=== PATIENT | female | born 1975 | race Caucasian/White ===

== ENCOUNTER → 2018-04-02 09:08 | Outpatient (CLI) | payer OTHER, SELFPAY ==
--- NOTE | 2018-04-02 09:12 | US_ITS ---
US transvaginal & transabdominal scanning Ordering Physician: Dexter Snowden MD Patient Age: 42 years: Female HISTORY: ITS.REASON: PELVIC PAIN Patient tender with palpation at the left lower quadrant TECHNIQUE:. Initially Transvaginal pelvic ultrasound performed. However the ovaries are actually better seen with transabdominal images. COMPARISON :March 15, 2016 ultrasound pelvis FINDINGS Uterus normal size 8.1 cm length x4.4 similar AP x 6.1 cm wide. The no mass lesions. Previous scar. I believe evident A few tinysmallNabothian cysts noted . Endometrial stripe measures up to 10 mm thickness.. Right ovary measures 2.8 x 2.3 x 2.45 cm.. Right ovary unremarkable WNL. left ovary measures 3.6 x 2.65 cm. . A simple debris-filled cyst is seen at the left ovary. Measures 2.2 x 1.7 cm Satisfactory color Doppler flow to both ovaries. No free fluid at pelvis IMPRESSION: Uterus normal size. Moderate endometrial stripe up to 10 mm AP . Ovaries normal in size bilateral. Left ovary 2.2 cm is 1.7 debris-filled cyst noted. No fluid in cul-de-sac.
--- NOTE | 2018-04-02 09:12 | MM_ITS ---
MM Dig screening mamm BI w/CAD CAD Screening COMPARISON: None, this is baseline INDICATION: There is a history of breast cancer in a patient maternal grandmother. TECHNIQUE: Standard CC and MLO images were obtained. R2 CAD reviewed. FINDINGS: The breasts are composed primarily of fat with minimal scattered fibroglandular densities in each breast. There is more markers on each breast. There are benign-appearing calcifications right breast. There is no suspicious lesion and no suspicious microcalcifications. IMPRESSION: Fatty type breast parenchyma with no suspicious lesion seen BI-RADS Category: 2 Benign Finding(s) RECOMMENDED FOLLOW-UP: 1YR - 1 YEAR FOLLOW-UP (A letter has been sent to the patient regarding results of the study.)
== END ==
PROVIDERS: PCP Internal Medicine; Visit Provider Obstetrics & Gynecology
DX: Z12.31 Encounter for screening mammogram for malignant neoplasm of breast (principal); R10.2 Pelvic and perineal pain
CPT/HCPCS: 76830; 77067

== ENCOUNTER → 2018-04-10 10:18 | Outpatient (CLI) | payer OTHER, SELFPAY ==
--- NOTE | 2018-04-10 10:21 | US_ITS ---
US transvaginal HISTORY: Left lower quadrant pain ITS.REASON: LEFT OVARIAN CYST ORDERING PHYSICIAN: Dexter Snowden MD PATIENT AGE: 42 years Comparison: 04/02/2018 FINDINGS: The uterus is 9 x 5 x 5 cm with a combined medial thickness of 9 mm. No adnexal mass or cul-de-sac fluid. Blood flow is present within both ovaries. Study is somewhat limited technically due to patient's body habitus. Previously noted left ovarian cyst is no longer demonstrated IMPRESSION: Negative ultrasound pelvis
== END ==
PROVIDERS: PCP Internal Medicine; Visit Provider Obstetrics & Gynecology
DX: N83.202 Unspecified ovarian cyst, left side (principal)
CPT/HCPCS: 76830

== ENCOUNTER 2019-10-20 11:05 | Emergency (ER) | payer OTHER, SELFPAY ==
[2019-10-20 11:06] VITALS: BP 139/78; PULSE 101; RESP 18; TEMP 36.6; O2SAT 99; BMI 44.2
--- NOTE | 2019-10-20 11:16 | CT_ITS ---
PROCEDURE: CT ABDOMEN PELVIS WO CON CLINICAL INDICATION: abdomen pain Bilateral pelvic pain COMPARISON: ABDPELW/O CT ABD PELVIS W/O CONTRAST from 04/16/2016 TECHNIQUE: Axial images obtained with sagittal and coronal reformats. All CT scans at the facility use one or more dose reduction, viz: automated exposure control, ma/kV adjustment per patient size (including targeted exams where dose is matched to indication, i.e. head), or iterative reconstruction technique. FINDINGS: LOWER THORAX: Atelectatic changes are present in the right middle lobe with some minimal nodularity noted at this region. ABDOMEN & PELVIS: Prior cholecystectomy. The liver, spleen, right adrenal gland and pancreas have an unremarkable appearance. There is mild enlargement of the left adrenal gland maintaining an adrenal form shape measuring -13 Hounsfield units consistent with a an adenoma. No renal or ureteral calculi are evident. There are few scattered small mesenteric lymph nodes. Unremarkable appendix. Colonic diverticulosis without diverticulitis. No pelvic mass or abnormal fluid collection. No intestinal obstruction or free air. No acute bony findings. IMPRESSION: No acute finding of the abdomen or pelvis. Right lower middle lobe atelectatic changes Dictated by: Josesito King MD 10/20/2019 12:23 Electronically signed by Josesito King MD in [place] 10/20/2019 12:23
[2019-10-20 11:36] LABS: Basophils % 0.4 % (0.1-2.0); Eosinophils # 0.1 K/mm3 (0.0-0.4); Eosinophils % 1.3 % (0.1-12.0); Hemoglobin 15.1 g/dL (12.2-16.2); Lymphocytes # 3.2 K/mm3 (0.7-4.5); Lymphocytes % 29.7 % (10-50); Mean Corpuscular HGB Conc 35.2 g/dL (31.8-35.4); Mean Corpuscular Hemoglobin 30.7 pg (27.0-31.2); Mean Corpuscular Volume 87.1 fl (81-99); Mean Platelet Volume 7.6 fl (7.4-10.4); Monocytes # 0.4 K/mm3 (0.1-1.0); Monocytes % 3.2 % (1.7-9.3); Neutrophils # 7.1 K/mm3 (1.8-7.8); Neutrophils % 65.4 % (37.0-80.0); Platelet Count 361 K/mm3 (142-424); Red Blood Count 4.94 M/mm3 (4.20-5.40); Red Cell Distribution Width 13.8 % (11.5-17.5); White Blood Count 10.9 K/mm3 (4.8-10.8)
[2019-10-20 11:40] LABS: Chloride 100 mmol/L (98-107); Potassium 4.3 mmoL/L (3.5-5.1); Sodium 137 mmol/L (136-145)
[2019-10-20 11:42] LABS: Blood Urea Nitrogen 13 mg/dl (7-17); Creatinine Clearance Estimated 122 mL/min (50-200); Estimated Glomerular Filt Rate 136 ml/min (>60); GFR (African American) 165 ML/MIN (>60)
[2019-10-20 11:43] LABS: Alanine Aminotransferase 18 U/L (12-78); Albumin Level 4.4 g/dl (3.5-5.0); Albumin/Globulin Ratio 1.5 (1.1-1.8); Alkaline Phosphatase 70 U/L (38-126); Anion Gap 13.3 mEq/L (5-15); Aspartate Amino Transferase 22 U/L (14-36); Bilirubin,Total 0.5 mg/dl (0.2-1.3); Carbon Dioxide 28 mmol/L (22.0-30.0); Globulin 2.9 g/dL (1.3-3.2); Total Protein,Serum 7.3 g/dl (6.3-8.2)
[2019-10-20 11:44] LABS: Calcium 9.7 mg/dl (8.4-10.2); Glucose 95 mg/dl (74-100)
--- NOTE | 2019-10-20 11:58 | PC.NURSE ---
Pt to CT
[2019-10-20 12:06] VITALS: BP 140/89; PULSE 91; RESP 19; O2SAT 99
--- NOTE | 2019-10-20 13:12 | US_ITS ---
PROCEDURE: US TRANSVAGINAL CLINICAL INDICATION: pelvic pain COMPARISON: TRANVAG US transvaginal from 04/10/2018 FINDINGS: UTERUS: 10cm x 5cmx 4cm with a combined endometrial thickness of 13.8mm LEFT OVARY: [id number] with a volume of 10.3ml. RIGHT OVARY: [id number] with a volume of 8ml. There are nabothian cyst present. The ovaries are not well delineated. No dominant cyst evident. No cul-de-sac fluid apparent IMPRESSION: Bulky uterus with thickened endometrium Dictated by: Josesito King MD 10/20/2019 15:34 Electronically signed by Josesito King MD in [place] 10/20/2019 15:34
--- NOTE | 2019-10-20 14:07 | [facility].EDABDPAI ---
ED Disposition Clinical Impression: PCOS (polycystic ovarian syndrome) Disposition: Home, Self-Care Condition on Discharge: Good Instructions: DI for Acute Abdomen Additional Instructions: Please follow-up with Dr. Damico. Prescriptions: Dicyclomine HCl [Bentyl 10mg capsule] 20 mg PO QID PRN 10 Days #40 cap PRN Reason: Abdominal Distention Transmission Status: Pending to [id number] Nabumetone 750 mg PO BID 10 Days #20 tab Transmission Status: Pending to [id number] Referrals: Andrea Delgado [Primary Care Provider] - - Critical Care Critical Care Time: No Attestation: On 10/20/19, the high probability of a clinically significant, sudden or life threatening deterioration of the following system(s) required my full and direct attention, intervention and personal management. The time I documented below is in addition to time spent performing reported procedures but includes the following listed in this critical care notation. Medical Decision Making - Medical Records Medical records reviewed: Yes: I reviewed the patient's medical records. - [place] Inquiry Pt receiving controlled substance: No Vital Signs: 10/20/19 11:06 10/20/19 12:06 Temperature 97.8 F Temperature Source Oral Pulse Rate [Radial] 101 H 91 H Respiratory Rate 18 19 Blood Pressure [Right Arm] 139/78 140/89 Blood Pressure Mean [Right Arm] 98 106 Blood Pressure Source [Right Arm] Automatic Cuff Automatic Cuff Blood Pressure Position [Right Arm] Sitting Sitting 02 Sat by Pulse Oximetry 99 99 Oxygen Delivery Method Room Air Room Air - Lab Data Lab results reviewed: Yes: I reviewed the patient's lab results. Lab Results 10/20/19 11:25: WBC 10.9 H, RBC 4.94, Hgb 15.1, Hct 43.0, MCV 87.1, MCH 30.7, MCHC 35.2, RDW 13.8, Plt Count 361, MPV 7.6, Neut % (Auto) 65.4, Lymph % (Auto) 29.7, [place] % (Auto) 3.2, Eos % (Auto) 1.3, Baso % (Auto) 0.4, Neut # (Auto) 7.1, Lymph # (Auto) 3.2, [place] # (Auto) 0.4, Eos # (Auto) 0.1, Baso # (Auto) 0.0 10/20/19 11:25: Sodium 137, Potassium 4.3, Chloride 100, Carbon Dioxide 28, Anion Gap 13.3, BUN 13, Creatinine 0.50 L, Estimated Creat Clear 122, Estimated GFR 136, Est GFR ( Amer) 165, Glucose 95, Calcium 9.7, Total Bilirubin 0.5, AST 22, ALT 18, Alkaline Phosphatase 70, Total Protein 7.3, Albumin 4.4, Globulin 2.9, Albumin/Globulin Ratio 1.5 Result diagrams: 10/20/19 11:25 10/20/19 11:25 Orders (Tests/Meds): ED MEDICATIONS Discontinued Medications Generic Name Dose Route Start Last Admin Trade Name Freq PRN Reason Stop Dose Admin Hydromorphone HCl 1 mg 10/20/19 12:20 10/20/19 12:21 Dilaudid 2mg/Ml Syringe IV 10/20/19 12:21 1 mg ONCE ONE Administration Sodium Chloride 1,000 mls @ 999 mls/hr 10/20/19 11:30 10/20/19 11:28 Sod Chlor 0.9% 1000ml Bag IV 10/20/19 12:30 999 mls/hr .Q1H1M SHAVON Administration Morphine Sulfate 4 mg 10/20/19 11:27 10/20/19 11:27 Morphine 4mg/Ml Syringe IV 10/20/19 11:28 4 mg ONCE ONE Administration Ondansetron HCl 4 mg 10/20/19 11:16 10/20/19 11:26 Zofran 4mg/2ml Vial IV 10/20/19 11:17 4 mg ONCE ONE Administration ORDERS Category Date Time Status US transvaginal Stat Exams 10/20/19 13:12 Ordered - CT Data CT Scan: Abdomen, Pelvis Time Received: 14:[address] Reviewed: Yes: I have viewed the radiologist's interpretation Preliminary Findings: Normal/NAD - US Data US Images: Abdomen ED US Reviewed: Yes: I have viewed radiologist's interpretation Findings Narrative: Polycystic ovaries Abdominal Pain HPI - General Chief Complaint: Abdominal Pain Stated Complaint: lower stomach pain Time Seen by Provider: 10/20/19 14:08 Mode of Arrival: Ambulatory Limitations: No Limitations Description of Symptoms (Recalled from ER Triage Doc. by RN): complaint of lower abdomen pain that started last night. States she has previous history of ovarian cysts. - History of Present Illness HPI narrat
[2019-10-20 14:55] VITALS: BP 138/70; PULSE 70; RESP 16; TEMP 36.7; O2SAT 98
== END 2019-10-20 14:56 | disposition home or self-care (01) ==
PROVIDERS: Emergency Provider Family Medicine; PCP Internal Medicine
DX: E28.2 Polycystic ovarian syndrome (principal); R10.30 Lower abdominal pain, unspecified; J45.909 Unspecified asthma, uncomplicated; F17.210 Nicotine dependence, cigarettes, uncomplicated; Z90.49 Acquired absence of other specified parts of digestive tract; Z79.899 Other long term (current) drug therapy
CPT/HCPCS: 74176; 76830; 80053; 85025; 96365; 96375; 99283; J2405

== ENCOUNTER → 2019-11-17 12:50 | Outpatient (CLI) | payer OTHER, SELFPAY ==
--- NOTE | 2019-11-17 12:53 | MM_ITS ---
PROCEDURE: MM DIG SCREENING MAMM BI W/CAD Referring Doctor: Andrea Delgado Patient Age:44Y CLINICAL INDICATION: SCREENING. No hormones, no new complaints.. Premenopausal . Family history maternal grandmother with breast cancer COMPARISON: [facility] MM Dig screening mamm BI w/CAD from 04/02/2018 TECHNIQUE: Standard CC and MLO images were obtained. R2 CAD reviewed. Bilateral digital breast tomosynthesis included. additional axillary CC views both breast included. Additional nipple profile view left breast. The FINDINGS: Low-density breast; minimal residual fibroglandular elements with diffuse, moderate fatty changes bilateral. This lower density character facilitates mammography. No new areas of concern either breast. No new dominant or suspicious mass. No architectural distortion Scattered benign calcifications, No suspicious calcifications. IMPRESSION: Stable bilateral mammogram.. Low-density breast with moderate diffuse fatty changes. No new areas of concern Routine follow-up suggested BI-RAD Category: 1 Negative FOLLOW-UP: 1YR 1 Year Follow-up (A letter has been sent to the patient regarding results of the study.) Dictated b Raoul Simpson MD 11/18/2019 21:34 Raoul Simpson MD in [place] 11/18/2019 21:34
== END ==
PROVIDERS: PCP Internal Medicine; Visit Provider Internal Medicine
DX: Z12.31 Encounter for screening mammogram for malignant neoplasm of breast (principal)
CPT/HCPCS: 77063; 77067